=== PATIENT | male | born 1960 | race Caucasian/White ===

== ENCOUNTER 2020-07-08 13:23 | Outpatient (CLI) | payer BC | END 2020-07-08 23:59 | disposition home or self-care (01) | LOC: STAR 13:23 | PROVIDERS: ATTEND Internal Medicine Critical Care Medicine | DX: Z01.818 Encounter for other preprocedural examination (principal); Z11.59 Encounter for screening for other viral diseases | CPT/HCPCS: 36415; 87635 ==

== ENCOUNTER 2020-07-15 06:07 | Day surgery (SDC) | payer BC ==
[~2020-07-15] VITALS: Ht 182.9 cm; Wt 80.5 kg
[2020-07-15] MEDS ORDERED: LACTATED RINGERS 1,000 ML IV SCH (06:24)
[2020-07-15] MEDS ORDERED: CHLORHEXIDINE 15 ML UDC MM STA (06:24)
[2020-07-15] MEDS ORDERED: CHLORHEXIDINE 15 ML UDC ONE (06:26)
[2020-07-15 06:47] VITALS: BP 117/73
[2020-07-15] MEDS ORDERED: no meds per pt (06:52)
[2020-07-15] MEDS ORDERED: IBUP200C8 PO (06:52)
[2020-07-15 07:29] LABS: BASOPHILS # (AUTO) 0.03 x10^3/uL (0-0.1); BASOPHILS % (AUTO) 1 % (0-1); EOSINOPHILS % (AUTO) 4 % (1-7); LYMPHOCYTES # (AUTO) 1.82 x10^3/uL (1-3.4); LYMPHOCYTES % (AUTO) 38 % (22-44); MD NO; MEAN CORPUSCULAR HEMOGLOBIN 30.2 pg (27.5-34.5); MEAN CORPUSCULAR HGB CONC 32.7 g/dL (33.2-36.2); MEAN CORPUSCULAR VOLUME 92.3 fL (81-97); MEAN PLATELET VOLUME 7.5 fL (7.4-10.4); MONOCYTES # (AUTO) 0.44 x10^3/uL (0.2-0.8); MONOCYTES % (AUTO) 9 % (2-9); NEUTROPHILS # (AUTO) 2.32 x10^3/uL (1.8-6.8); NEUTROPHILS % (AUTO) 48 % (42-75); PLATELET COUNT 234 x10^3/uL (130-400); RED BLOOD COUNT 4.97 x10^6/uL (4.38-5.82); RED CELL DISTRIBUTION WIDTH 12.8 % (9.4-14.8)
[2020-07-15 07:38] LABS: ALANINE AMINOTRANSFERASE 22 U/L (12-78); ALBUMIN 3.7 g/dL (3.4-5.0); ANION GAP 5 mmol/L (5-15); CALCIUM 8.5 mg/dL (8.5-10.1); CHLORIDE 112 mmol/L (98-107)
[2020-07-15 07:40] LABS: ALKALINE PHOSPHATASE 55 U/L (45-117); BILIRUBIN,TOTAL 0.3 mg/dL (0.2-1.0); TOTAL PROTEIN 7.1 g/dL (6.4-8.2)
[2020-07-15 07:51] LABS: INTERNATIONAL NORMALIZED RATIO 0.99 (0.93-1.1); PROTHROMBIN TIME 10.2 Seconds (9.6-11.5)
[2020-07-15] MEDS ORDERED: FENTANYL PF 250 MCG/5ML ONE (08:35)
[2020-07-15] MEDS ORDERED: PROPOFOL 50 ML ONE (08:35)
[2020-07-15] MEDS ORDERED: ROCURONIUM 10MG/ML,5ML ONE (08:44)
[2020-07-15] MEDS ORDERED: MEPERIDINE/PF 25MG/0.5ML IVPush PRN (09:00)
[2020-07-15] MEDS ORDERED: PROMETHAZINE 25 MG/ML, 1ML IVPush PRN (09:00)
[2020-07-15] MEDS ORDERED: FENTANYL PF 100 MCG/2ML IV PRN (09:00)
[2020-07-15] MEDS ORDERED: DIPHENHYDRAMINE 50 MG/ML, 1ML IVPush PRN (09:00)
[2020-07-15] MEDS ORDERED: ONDANSETRON 2MG/ML, 2ML IVPush PRN (09:00)
[2020-07-15] MEDS ORDERED: EPHEDRINE 50 MG/ML, 1ML IVPush PRN (09:00)
[2020-07-15] MEDS ORDERED: DIAZEPAM 5 MG/ML, 2ML IVPush PRN (09:00)
[2020-07-15] MEDS ORDERED: LABETALOL 5MG/ML, 20ML IV PRN (09:00)
[2020-07-15] MEDS ORDERED: morphine SULFATE 10 MG/ML, 1ML IVPush PRN (09:00)
[2020-07-15] MEDS ORDERED: EPHEDRINE 50 MG/ML, 1ML IM PRN (09:00)
[2020-07-15] MEDS ORDERED: OXYcodone 5 MG/5 ML ORAL.SOL UDC PO PRN (09:00)
[2020-07-15] MEDS ORDERED: PROPOFOL 10 MG/ML, 20ML ONE (10:45)
[2020-07-15] MEDS ORDERED: ONDANSETRON 2MG/ML, 2ML ONE (10:45)
== END 2020-07-15 12:30 | disposition home or self-care (01) ==
LOC: OUT 06:07
PROVIDERS: ATTEND Internal Medicine Critical Care Medicine
DX: R59.1 Generalized enlarged lymph nodes (principal); R94.8 Abnormal results of function studies of other organs and systems; G47.33 Obstructive sleep apnea (adult) (pediatric); C43.9 Malignant melanoma of skin, unspecified; Z88.0 Allergy status to penicillin; Z87.891 Personal history of nicotine dependence; Z72.89 Other problems related to lifestyle; Z79.899 Other long term (current) drug therapy
CPT/HCPCS: 31623; 31625; 31652; 36415; 71045; 80053; 85025; 85610; 85730; 88112; 88172; 88173; 88177; 88305; 88341; 88342; J2405; J2704; J3010; J7120; 88333